=== PATIENT | male | born 1975 | race African-American/Black ===

== ENCOUNTER 2017-04-17 12:06 | Emergency (ER) | payer MEDICAID, OTHER ==
[2017-04-17] MEDS ORDERED: ACETAMINOPHEN 325 MG TABLET PO ONE (13:14)
--- NOTE | 2017-04-17 14:23 | ER Document Report ---
HPI - HPI Patient complains to provider of: hand pain Pain Level: 4 Context: Patient is a 41-year-old male who presents emergency department complaining of left hand pain and swelling. Patient states that he was mowing his lawn when he went to pull the starter cord and it hit his left hand. Patient states that it was swollen all last evening and still painful this morning. Otherwise he states he can make a fist full range of motion no decreased sensation. Denies any other past medical issues - DERM Skin Color: Normal Past Medical History - Social History Smoking Status: Current Every Day Smoker Chew tobacco use (# tins/day): No Frequency of alcohol use: None Drug Abuse: None Family History: Other Patient has suicidal ideation: No Patient has homicidal ideation: No Renal/ Medical History: Denies: Hx Peritoneal Dialysis Surgical Hx: Negative - Immunizations Hx Diphtheria, Pertussis, Tetanus Vaccination: No Vertical Provider Document - CONSTITUTIONAL Agree With Documented VS: Yes Exam Limitations: No Limitations General Appearance: WD/WN, No Apparent Distress - INFECTION CONTROL TRAVEL OUTSIDE OF THE [place]. IN LAST 30 DAYS: No - RESPIRATORY O2 Sat by Pulse Oximetry: 100 - CARDIOVASCULAR Pulses: Normal: Radial Notes: Capillary refill less than 2 seconds in all upper extremity digits - MUSCULOSKELETAL/EXTREMETIES Musculoskeletal/Extremeties: MAEW, FROM, Tender - Positive tenderness to palpation of the thenar muscle mass of the left hand with minimal swelling, Eccymosis. negative: No Edema - NEURO Level of Consciousness: Awake, Alert, Appropriate Motor/Sensory: No Motor Deficit, No Sensory Deficit - DERM Integumentary: Warm, Dry. negative: Laceration Course - Re-evaluation Re-evalutation: 04/17/17 15:29 Patient is a 41-year-old male who is hemodynamic stable, no acute distress and afebrile. Left hand x-ray negative for any dislocation or fracture. Discussed with patient to use ice and [id number] Motrin and can follow-up with primary care as needed - Vital Signs Vital signs: Temp Pulse Resp BP Pulse Ox 98.0 F 71 14 128/91 H 100 04/17/17 12:12 04/17/17 12:12 04/17/17 12:12 04/17/17 12:12 04/17/17 12:12 - Diagnostic Test Radiology reviewed: Image reviewed - No evidence of fracture or dislocation, Reports reviewed Discharge - Discharge Clinical Impression: Hand injury Condition: Good Disposition: HOME, SELF-CARE Instructions: Ice Packs ([facility]), Use of Cbhp-[id number]-Wmkelkb Ibuprofen ([facility]) Additional Instructions: Please follow-up with your primary care physician in the next 7 days if your pain is not improving. Forms: Return to Work
[2017-04-17 14:46] VITALS: BP 107/67
== END 2017-04-17 14:46 | disposition home or self-care (01) ==
LOC: ER 12:06
DX: S69.92XA Unspecified injury of left wrist, hand and finger(s), initial encounter (principal); W22.8XXA Striking against or struck by other objects, initial encounter; Y93.H2 Activity, gardening and landscaping; Y92.007 Garden or yard of unspecified non-institutional (private) residence as the place of occurrence of the external cause; F17.200 Nicotine dependence, unspecified, uncomplicated
CPT/HCPCS: 99283

== ENCOUNTER 2017-12-14 05:14 | Emergency (ER) | payer OTHER, MEDICAID ==
[2017-12-14 05:20] VITALS: BP 134/88
[2017-12-14] MEDS ORDERED: LIDOCAINE 2% VISCOUS SOLN 20 ML UDCUP PO ONE (06:50)
[2017-12-14] MEDS ORDERED: IBUPROFEN 600 MG TABLET PO ONE (06:53)
[2017-12-14] MEDS ORDERED: PENICILLIN V POTASSIUM 500 MG TABLET PO ONE (06:53)
[2017-12-14] MEDS ORDERED: ACETAMINOPHEN 325 MG TABLET PO ONE (06:53)
--- NOTE | 2017-12-14 06:55 | ER Document Report ---
ED Oral Problem - General Chief Complaint: Toothache Stated Complaint: TOOTHACHE Time Seen by Provider: 12/14/17 06:50 Notes: The patient is a 42-year-old male who presents with 1 day of right upper molar pain after he bit into an hard object and heard a crack. He has not seen a dentist for this. Denies fevers, tongue swelling, nausea, vomiting or neck stiffness. TRAVEL OUTSIDE OF THE U[place] IN LAST 30 DAYS: No - Related Data Allergies/Adverse Reactions: No Known Allergies Allergy (Verified 12/14/17 05:16) Past Medical History - General Information source: Patient - Social History Smoking Status: Unknown if Ever Smoked Family History: Reviewed & Not Pertinent, Other Renal/ Medical History: Denies: Hx Peritoneal Dialysis - Immunizations Hx Diphtheria, Pertussis, Tetanus Vaccination: No Review of Systems - Review of Systems EENT: Mouth pain, Dental problem. denies: Difficulty swallowing, Throat swelling, Mouth swelling Respiratory: denies: Cough, Wheezing Skin: denies: Lesions, Rash Neurological/Psychological: denies: Weakness, Numbness Physical Exam - Vital signs Vitals: Temp Pulse Resp BP Pulse Ox 98.2 F 81 20 134/88 H 100 12/14/17 05:19 12/14/17 05:19 12/14/17 05:19 12/14/17 05:19 12/14/17 05:19 - Notes Notes: PHYSICAL EXAMINATION: GENERAL: Well-appearing, well-nourished and in no acute distress. HEAD: Atraumatic, normocephalic. EYES: Pupils equal round and reactive to light, extraocular movements intact, sclera anicteric, conjunctiva are normal. ENT: poor dentition, single cracked tooth in right upper mouth with mild gingiva swelling, nares patent, oropharynx clear without exudates. Moist mucous membranes. NECK: Normal range of motion, supple without lymphadenopathy NEUROLOGICAL: Cranial nerves grossly intact. Normal speech, normal gait. Normal sensory and motor exams. SKIN: Warm, Dry, normal turgor, no rashes or lesions noted. Course - Re-evaluation Re-evalutation: Patient with poor dentition and a new tooth fracture. Will start on penicillin and have him follow-up with the dentist today. - Vital Signs Vital signs: Temp Pulse Resp BP Pulse Ox 98.2 F 81 20 134/88 H 100 12/14/17 05:19 12/14/17 05:19 12/14/17 05:19 12/14/17 05:19 12/14/17 05:19 Discharge - Discharge Clinical Impression: Toothache Condition: Stable Disposition: HOME, SELF-CARE Additional Instructions: TOOTHACHE: Your pain is due to dental decay. The tooth must be repaired in order for you to feel better. You will, therefore, be referred to a dentist. We do not have dentists on the staff at [facility]. Severe swelling or drainage around a tooth usually means a dental abscess. This also requires evaluation and treatment by the dentist, but antibiotics may be prescribed while awaiting dental treatment. You should be rechecked immediately if you develop major swelling of the face, increasing pain, a lump in the jaw or gums, headache, difficulty swallowing, or fever. PENICILLIN V K: You have been given a prescription for Penicillin VK. Your physician has determined that this is the best antibiotic for your condition. Pen VK can be taken with meals, however more of the antibiotic gets into the bloodstream if it's taken on an empty stomach. Penicillin usually has no side effects. However, allergy to penicillins is common. If you have had an allergic reaction to any drug of the penicillin family, you should never take any other penicillin. Notify your doctor at once if you develop hives, itching, swelling, faintness, or shortness of breath. FOLLOW-UP CARE: You have been referred for follow-up care to the dentists listed below. Call the dentists office for an appointment as you were instructed or within the next two days. If you experience worsening or a significant change in your symptoms, notify the physician immediately or return to the Emergency Department at any time for re-evaluation. [facility] [address] [place], [place] Thursday mornings, by appointment [facility] [address] [place] [address] [facility] [address] [facility] [address] [facility] [address] [email or web address] [address] [place] [address] Thursday- 8:00am to 5:00 pm Will see patients from other [facility]. Charges based on income and family size and accepts Medicare, Medicaid, and Insurances Will pull molars [facility] [address] Hours of Operation 8:00 am - 4:30 pm weekdays The following dental offices accept Medicaid: [facility] Dr. Ledesma Dr. Morales Dr. Sheth Dr. Tucker Luis E Velazquez, Rene, and Tk oral surgery Dr. Ramirez ([place]) Dr. Martinez ([place]) [facility] Drs. Marina and Jeanmarie ([place]) Dr. Tomlinson ([place]) [facility] Dr. Porter ([place]) Drs. Gamez and ([place]) Medicaid Care Line Prescriptions: Penicillin V Potassium [Penicillin Vk 500 mg Tablet] 500 mg PO BID #20 tablet Forms: Elevated Blood Pressure, Return to Work Referrals: [facility] [Provider Group] - Follow up as needed
== END 2017-12-14 07:15 | disposition home or self-care (01) ==
LOC: ER 05:14
DX: S02.5XXA Fracture of tooth (traumatic), initial encounter for closed fracture (principal); W22.8XXA Striking against or struck by other objects, initial encounter; K08.89 Other specified disorders of teeth and supporting structures
CPT/HCPCS: 99282; J3490

== ENCOUNTER 2018-01-22 05:04 | Emergency (ER) | payer OTHER, MEDICAID ==
[2018-01-22 05:09] VITALS: BP 127/80
[2018-01-22] MEDS ORDERED: KETOROLAC TROMETHAMINE 60 MG/2 ML SDV IM ONE (06:20)
--- NOTE | 2018-01-22 06:20 | ER Document Report ---
ED Neck/Back Problem - General Chief Complaint: Back Pain Stated Complaint: BACK PAIN Time Seen by Provider: 01/22/18 06:04 Notes: 42-year-old male to emergency department chief complaint of low back pain. History of low back pain. Followed by the [facility] for persistent low back pain. Pain radiates down right leg. Movement makes it worse. Denies any fever, chills, sweats, loss of bowel or bladder function. Denies any other symptoms at this time. States that he did not think he can make it to work this morning so thought he better come here for an evaluation TRAVEL OUTSIDE OF THE U.S. IN LAST 30 DAYS: No - HPI Patient complains to provider of: Pain Onset: Other - Chronic Onset: Gradual Timing: Constant Quality of pain: Achy Severity: Moderate Pain Level: 3 - Related Data Allergies/Adverse Reactions: No Known Allergies Allergy (Verified 01/22/18 05:55) Past Medical History - General Information source: Patient - Social History Smoking Status: Current Every Day Smoker Chew tobacco use (# tins/day): No Frequency of alcohol use: Occasional Drug Abuse: None Lives with: Family Family History: Reviewed & Not Pertinent, Other Patient has suicidal ideation: No Patient has homicidal ideation: No Renal/ Medical History: Denies: Hx Peritoneal Dialysis Musculoskeltal Medical History: Reports Other - Chronic low back pain - Immunizations Hx Diphtheria, Pertussis, Tetanus Vaccination: No Review of Systems - Review of Systems Constitutional: denies: Fever, Malaise, Weakness EENT: denies: Eye pain, Blurred vision, Mouth pain Cardiovascular: denies: Chest pain, Palpitations, Heart racing Respiratory: denies: Cough, Hurts to breathe, Short of breath, Wheezing Gastrointestinal: denies: Abdominal pain, Diarrhea, Nausea Genitourinary: denies: Burning, Dysuria, Discharge Male Genitourinary: denies: Testicular pain, Penile discharge Musculoskeletal: Back pain, Muscle stiffness. denies: Joint pain, Muscle pain Neurological/Psychological: denies: Sensory change, Weakness, Paralysis Physical Exam - Vital signs Vitals: Temp Pulse Resp BP Pulse Ox 98.5 F 77 18 127/80 H 100 01/22/18 05:08 01/22/18 05:08 01/22/18 05:08 01/22/18 05:08 01/22/18 05:08 Interpretation: Normal - General General appearance: Appears well, Alert - Respiratory Respiratory status: No respiratory distress Chest status: Nontender Breath sounds: Normal Chest palpation: Normal - Cardiovascular Rhythm: Regular Heart sounds: Normal auscultation Murmur: No - Abdominal Inspection: Normal Distension: No distension Bowel sounds: Normal Tenderness: Nontender Organomegaly: No organomegaly - Back Back: Normal, Other - Mild tenderness to palpation of the paraspinal muscles of the right paraspinal lumbar muscles. No midline tenderness. Normal reflexes distally. Positive straight leg raising on the right. - Extremities General upper extremity: Normal inspection, Nontender, Normal color, Normal ROM , Normal temperature General lower extremity: Normal inspection, Nontender, Normal color, Normal ROM , Normal temperature, Normal weight bearing. No: Kendra's sign - Neurological Neuro grossly intact: Yes Cognition: Normal Orientation: AAOx4 Morning View Coma Scale Eye Opening: Spontaneous Jayne Coma Scale Verbal: Oriented Jayne Coma Scale Motor: Obeys Commands Morning View Coma Scale Total: 15 Speech: Normal Motor strength normal: LUE, RUE, LLE, RLE Sensory: Normal Course - Re-evaluation Re-evalutation: 01/22/18 06:21 42-year-old male with history of low back pain[facility] is been [facility]. Same location as his normal pain. Pain is radiating down the right leg. Denies any fever, chills, sweats, loss of bowel or bladder function , no saddle anesthesia. Basically no red flag warning signs were reported. Physical exam is fairly unremarkable. Gave patient shot of Toradol. Will advise him to [facility] if [facility] get worse. Patient verbalized understanding of instructions and patient will be discharged at this time in stable condition. Work note given. - Vital Signs Vital signs: Temp Pulse Resp BP Pulse Ox 98.5 F 77 18 127/80 H 100 01/22/18 05:08 01/22/18 05:08 01/22/18 05:08 01/22/18 05:08 01/22/18 05:08 Discharge - Discharge Clinical Impression: Low back pain Qualifiers: Chronicity: acute Back pain laterality: right Sciatica presence: with sciatica Sciatica laterality: sciatica of right side Qualified Code(s): M54.41 - Lumbago with sciatica, right side Condition: Good Disposition: HOME, SELF-CARE Instructions: Pain Medication Injection ([facility]) Additional Instructions: Low Back Pain Three out of every four people will have an episode of disabling back pain during their lifetime. Most commonly the pain is due to straining of the muscles and ligaments in the low back. Usual treatment includes: (1) Rest on a firm surface. Avoid lying on your stomach. (2) Ice pack the painful area. After a few days, gentle heat may be used intermittently to relax the area, or ice packs can be continued. (3) Medication may be needed -- muscle relaxers and antiinflammatory medicines are commonly used. (4) As the back improves, exercises are prescribed to strengthen the back and abdominal muscles. Your doctor will advise you on the proper care for your back at each stage in your recovery. You may be better in a few days -- or healing may take several weeks. If new symptoms of a "herniated disc" (radiation of pain, numbness, or tingling down the back of the leg or weakness in the leg) occur, you should be re-examined. Further testing may be necessary. Return immediately if you develop any change in bowel or bladder function, fever with back pain, numbness in the crotch area, loss of function of lower extremities or for any other concerns Prescriptions: Diazepam [Valium 5 mg Tablet] 5 mg PO BID PRN 7 Days #15 tablet PRN Reason: Muscle Spasms Meloxicam [Mobic] 15 mg PO DAILY 20 Days #20 tablet Omeprazole Magnesium [Prilosec Otc] 20 mg PO DAILY 20 Days #20 tablet.dr Forms: Return to Work
== END 2018-01-22 06:35 | disposition home or self-care (01) ==
LOC: ER 05:04
DX: M54.41 Lumbago with sciatica, right side (principal); M54.9 Dorsalgia, unspecified; M79.604 Pain in right leg; F17.200 Nicotine dependence, unspecified, uncomplicated
CPT/HCPCS: 99283; 96372; J1885

== ENCOUNTER 2018-02-11 07:27 | Emergency (ER) | payer OTHER, MEDICAID ==
[2018-02-11 07:32] VITALS: BP 121/80
--- NOTE | 2018-02-11 08:12 | ER Document Report ---
ED General - General Mode of Arrival: Ambulatory Information source: Patient TRAVEL OUTSIDE OF THE [place]. IN LAST 30 DAYS: No - General Chief Complaint: Back Pain Stated Complaint: BACK PAIN Time Seen by Provider: 02/11/18 07:53 Notes: Patient is a 42 year old male with a history of chronic back pain presents to the emergency department complaining of back pain onset this morning. Patient states he was doing yard work yesterday when he had a mechanical slip and fall from a standing position and landed on his bottom. Patient states he believes this is why he is having back pain this morning. Patient states he came into the emergency for a work note so he could get rest at home. Patient denies numbness, weakness, or bladder dysfunction. Patient was seen in the emergency department on 01/22/2018 with back pain, but states today his pain is not as severe. (NANETTE BERMUDEZ) - Related Data Allergies/Adverse Reactions: No Known Allergies Allergy (Verified 01/22/18 05:55) Past Medical History - General Information source: Patient - Social History Smoking Status: Current Every Day Smoker Family History: Reviewed & Not Pertinent, Other - Immunizations Hx Diphtheria, Pertussis, Tetanus Vaccination: No Review of Systems - Review of Systems Constitutional: No symptoms reported EENT: No symptoms reported Cardiovascular: No symptoms reported Respiratory: No symptoms reported Gastrointestinal: No symptoms reported Genitourinary: No symptoms reported Male Genitourinary: No symptoms reported Musculoskeletal: See HPI, Back pain Skin: No symptoms reported Hematologic/Lymphatic: No symptoms reported Neurological/Psychological: No symptoms reported -: Yes All other systems reviewed and negative Physical Exam - Vital signs Vitals: Temp Pulse Resp BP Pulse Ox 98.5 F 78 15 121/80 100 02/11/18 07:31 02/11/18 07:31 02/11/18 07:31 02/11/18 07:31 02/11/18 07:31 - Notes Notes: GENERAL: Alert, interacts well. No acute distress. HEAD: Normocephalic, atraumatic. EYES: Pupils equal, round, and reactive to light. Extraocular movements intact. ENT: Oral mucosa moist, tongue midline. NECK: Full range of motion. Supple. Trachea midline. LUNGS: Clear to auscultation bilaterally, no wheezes, rales, or rhonchi. No respiratory distress. HEART: Regular rate and rhythm. No murmurs, gallops, or rubs. ABDOMEN: Soft, non-tender. Non-distended. Bowel sounds present in all 4 quadrants. EXTREMITIES: Moves all 4 extremities spontaneously. Right forearm, dorsal aspect contains a tattoo, small amount of crusting and warmth, no erythema or exudate. Sensations intact, no saddle anesthesia. Great toe raise 5/5 bilaterally. Able to walk on heels and toes. No edema, radial and dorsalis pedis pulses 2/4 bilaterally. No cyanosis. NEUROLOGICAL: Alert and oriented x3. Normal speech. mildly decreased reflexes of bilateral patellar tendons. PSYCH: Normal affect, normal mood. SKIN: Warm, dry, normal turgor. No rashes or lesions noted. BACK: Tender to palpation diffusely to the lumbar region, across spinal and paraspinal regions. (NANETTE BERMUDEZ) Course - Re-evaluation Re-evalutation: 02/11/18 08:14 Patient emphasizes that his back pain is not nearly as bad as when he was seen on the , states he does not want anything for pain including a shot of Toradol like he got last time, states that he feels that all he needs to do is rest today however his job told him he had to have a work note before he can be excused from work. Patient has no red flag symptoms, no signs of cauda equina, normal strength, normal gait, no saddle anesthesia, no bowel or bladder dysfunction. Patient will be discharged to home. (SANTY CERNA) - Vital Signs Vital signs: Temp Pulse Resp BP Pulse Ox 98.5 F 78 15 121/80 100 02/11/18 07:31 02/11/18 07:31 02/11/18 07:31 02/11/18 07:31 02/11/18 07:31 Discharge - Discharge Clinical Impression: Acute exacerbation of chronic low back pain Condition: Stable Disposition: HOME, SELF-CARE Instructions: Low Back Pain ([facility]) Forms: Return to Work Referrals: JONATHAN HERCULES MD [COMMUNITY BASED STAFF] - Follow up as needed Scribe Attestation: 02/11/18 14:35 I personally performed the services described in the documentation, reviewed and edited the documentation which was dictated to the scribe in my presence, and it accurately records my words and actions. (SANTY CERNA) Scribe Documentation - Scribe Written by Mere:: Mere Reid, 02/11/2018 08:32 acting as scribe for :: Juan
== END 2018-02-11 08:35 | disposition home or self-care (01) ==
LOC: ER 07:27
DX: G89.29 Other chronic pain (principal); M54.5 Low back pain; F17.200 Nicotine dependence, unspecified, uncomplicated
CPT/HCPCS: 99283

== ENCOUNTER 2018-02-17 07:03 | Emergency (ER) | payer OTHER, MEDICAID ==
[2018-02-17 07:15] VITALS: BP 117/67
--- NOTE | 2018-02-17 07:34 | ER Document Report ---
ED GI/ - General Chief Complaint: Vomiting Stated Complaint: VOMITING Time Seen by Provider: 02/17/18 07:20 Notes: The patient is a 42-year-old male who presents with 12 hours of nausea, vomiting and watery diarrhea. His daughter had similar symptoms a few days ago and they quickly resolved after 2 days. Patient tried to go to work and was told to go the ER. He denies abdominal pain, current nausea, blood in stool, recent antibiotic use, fevers, recent travel or urinary symptoms. TRAVEL OUTSIDE OF THE [place] IN LAST 30 DAYS: No - Related Data Allergies/Adverse Reactions: No Known Allergies Allergy (Verified 02/17/18 07:20) Past Medical History - General Information source: Patient - Social History Smoking Status: Unknown if Ever Smoked Family History: Reviewed & Not Pertinent, Other Renal/ Medical History: Denies: Hx Peritoneal Dialysis - Immunizations Hx Diphtheria, Pertussis, Tetanus Vaccination: No Review of Systems - Review of Systems Notes: REVIEW OF SYSTEMS: CONSTITUTIONAL: -fevers, -chills EENT: -eye pain, -difficulty swallowing, -nasal congestion CARDIOVASCULAR: -chest pain, -syncope. RESPIRATORY: -cough, -SOB GASTROINTESTINAL: -abdominal pain, +nausea, +vomiting, +diarrhea GENITOURINARY: -dysuria, -hematuria MUSCULOSKELETAL: -back pain, -neck pain SKIN: -rash or skin lesions. HEMATOLOGIC: -easy bruising or bleeding. LYMPHATIC: -swollen, enlarged glands. NEUROLOGICAL: -altered mental status or loss of consciousness, -headache, - neurologic symptoms PSYCHIATRIC: -anxiety, -depression. ALL OTHER SYSTEMS REVIEWED AND NEGATIVE. Physical Exam - Vital signs Vitals: Temp Pulse Resp BP Pulse Ox 98.3 F 91 16 117/67 99 02/17/18 07:11 02/17/18 07:11 02/17/18 07:11 02/17/18 07:11 02/17/18 07:11 - Notes Notes: PHYSICAL EXAMINATION: GENERAL: Well-appearing, well-nourished and in no acute distress. HEAD: Atraumatic, normocephalic. EYES: Pupils equal round and reactive to light, extraocular movements intact, sclera anicteric, conjunctiva are normal. ENT: nares patent, oropharynx clear without exudates. Moist mucous membranes. NECK: Normal range of motion, supple without lymphadenopathy LUNGS: Breath sounds clear to auscultation bilaterally and equal. No wheezes rales or rhonchi. HEART: Regular rate and rhythm without murmurs ABDOMEN: Soft, nontender, normoactive bowel sounds. No guarding, no rebound. No masses appreciated. EXTREMITIES: Normal range of motion, no pitting or edema. No cyanosis. NEUROLOGICAL: Cranial nerves grossly intact. Normal speech, normal gait. Normal sensory and motor exams. PSYCH: Normal mood, normal affect. SKIN: Warm, Dry, normal turgor, no rashes or lesions noted. Course - Re-evaluation Re-evalutation: Patient appears very well and is in no acute distress. His abdomen is completely soft and nontender. Vital signs are normal symptoms are only ongoing for 12 hours. He does not require blood work at this time. His daughter had the same symptoms a few days ago. No dangerous risk factors for C. difficile and no recent travel. Instructed him to stay hydrated by using Zofran and given strict return precautions. - Vital Signs Vital signs: Temp Pulse Resp BP Pulse Ox 98.3 F 91 16 117/67 99 02/17/18 07:11 02/17/18 07:11 02/17/18 07:11 02/17/18 07:11 02/17/18 07:11 Discharge - Discharge Clinical Impression: Nausea vomiting and diarrhea Condition: Stable Disposition: HOME, SELF-CARE Additional Instructions: VOMITING: Vomiting (or nausea without vomiting) can be caused by many other different problems. It can mean that something's wrong with the stomach, such as ulcers or inflammation or the intestinal tract, such as appendicitis. But it can also be a symptom of a problem that has nothing to do with the stomach or intestines. Vomiting is common with severe headaches, earaches, tonsillitis, and kidney infections, etc. We see it with pneumonia or heart attacks. Drugs can cause nausea and vomiting. Many abdominal problems cause vomiting; for example, gallstones, kidney stones, pancreatitis, and intestinal obstruction ( blocked bowels). In most cases, curing the vomiting depends on fixing the problem that caused it. For temporary relief, we may use an anti-nausea medicine. For home use, we can prescribe suppositories, chewable pills, pills that dissolve in the mouth, or liquid anti-nausea drugs. If the vomiting seems to be caused by a problem in the stomach, acid-suppressing drugs may be prescribed as well. It's important to avoid dehydration. Sip small amounts of clear liquids ( soft drinks, tea, broth, etc) . Try to take fluids frequently even if you are vomiting to prevent dehydration. Take increasing amounts of fluid and when liquids are being consumed successfully, advance to small amounts of bland food (toast, soups, mashed potatoes, etc.) until you are able to resume a regular diet. Avoid aspirin, tobacco, and alcohol. If the vomiting worsens, if the problem that's making you vomit worsens, or if there's evidence of bleeding in the stomach (such as black, tarry stool, or bloody or black vomit), you should return immediately. Also, return if abdominal pain worsens or becomes localized to one area or you develop high fever. Call your doctor if you aren't improved in 24 hours. DIARRHEA, NON-SPECIFIC: Diarrhea means frequent, watery stools. There are many causes. Any problem that keeps the intestinal tract from absorbing water from the stool can lead to diarrhea. A sudden new diarrhea problem is usually caused by a virus, food sensitivity, toxic bacteria, or drugs. In this case, we expect the problem to go away soon. Testing is done only if you seem seriously ill from the diarrhea. If you have chronic diarrhea, or diarrhea that keeps coming back, we need to find out why. Chronic diarrhea can be due to inflammation of the bowels such as Crohn's disease or ulcerative colitis, food sensitivity such as intolerance to lactose or wheat protein, irritable bowel syndrome, and other problems. If your diarrhea is a significant problem but it's not clear why you have it, we' ll refer you to a specialist for further testing. During an episode of diarrhea, drink small amounts (two to six ounces) of clear liquids (soft drinks, sport drinks, herb teas, broth, etc). Take fluids frequently to prevent dehydration. It's usually not a problem to take mild anti- diarrhea medication such as Kaopectate or Pepto-Bismol. As the diarrhea eases, advance to small amounts of bland food (mashed potato, toast) for 24 hours. Call the physician if blood appears in your vomit or stool, if vomiting lasts longer than 24 hours, if the abdominal pain worsens or becomes localized to one area, if you develop high fever, or if you become lightheaded and weak. VIRAL SYNDROME: The physician has diagnosed a viral infection. Viruses not only cause "colds," but can cause many different symptoms including generalized aching, fever, headache, cough, diarrhea, nausea, vomiting, and fatigue. The treatment, for the most part, is simply relief of symptoms. This means that antibiotics are usually not given. Rest, fluids, pain medications and, occasionally, medication for the specific symptoms that are most bothersome will be prescribed. Use good handwashing to avoid passing the virus to others. Shared toys should be cleaned with disinfectant. Clean the toilets, sinks, and counter surfaces in bathrooms. Launder clothing in hot water. Contact the physician if you develop any new or unusual symptoms such as severe headache, stiff neck, high fever, chest pain, productive cough, or shortness of breath. You should be rechecked if you don't see marked improvement within seven to 10 days. ANTINAUSEA MEDICATION: You have been given a medication to suppress nausea and vomiting. This type of medication can be given as a shot, pill, or suppository. It will usually last for many hours. Pills and shots usually last six to eight hours. For the typical illness, only one or two doses of the medication may be necessary. Mild lightheadedness may occur. This type of medicine can cause drowsiness. Do not drive or operate dangerous machinery while under its influence. Do not mix with alcohol. See your doctor at once if you have muscle spasms or tightness, or uncontrollable motions (particularly of the neck, mouth, or jaw). Persistent vomiting or severe lightheadedness should also be evaluated by the physician. FOLLOW-UP CARE: If you have been referred to a physician for follow-up care, call the physician s office for an appointment as you were instructed or within the next two days. If you experience worsening or a significant change in your symptoms, notify the physician immediately or return to the Emergency Department at any time for re-evaluation. Prescriptions: Ondansetron [Zofran Odt 4 mg Tablet] 1 - 2 tab PO Q4H PRN #15 tab.rapdis PRN Reason: For Nausea/Vomiting Forms: Return to Work
== END 2018-02-17 07:40 | disposition home or self-care (01) ==
LOC: ER 07:03
DX: R11.2 Nausea with vomiting, unspecified (principal); R19.7 Diarrhea, unspecified
CPT/HCPCS: 99283

== ENCOUNTER → 2018-04-19 | Outpatient (CLI) | payer MEDICAID ==
--- NOTE | 2018-04-19 16:05 | RADIOLOGY REPORT (SQ) ---
EXAM DESCRIPTION: LUMBAR SPINE COMPLETE COMPLETED DATE/TIME: 04/19/2018 1:13 pm REASON FOR STUDY: LUMBAGO WITH SCIATICA, UNSPECIFIED SIDE M54.40 LUMBAGO WITH SCIATICA, UNSPECIFIED SIDE COMPARISON: None. NUMBER OF VIEWS: Five views including obliques. TECHNIQUE: AP, lateral, oblique, and sacral radiographic images acquired of the lumbar spine. LIMITATIONS: None. FINDINGS: MINERALIZATION: Normal. SEGMENTATION: Normal. No transitional anatomy. ALIGNMENT: Normal. VERTEBRAE: Maintained height. No fracture or worrisome bone lesion. DISCS: Preserved height. No significant osteophytes or end plate irregularity. POSTERIOR ELEMENTS: Pedicles and facets are intact. No pars defect or posterior arch defects. Lower lumbar facet joint space narrowing and bony spurring left greater than right at L4-5 HARDWARE: None in the spine. PARASPINAL SOFT TISSUES: Normal. PELVIS: Intact as visualized. No fractures or worrisome bone lesions. SI joints intact. OTHER: No other significant finding. IMPRESSION: Lumbar facet arthropathy at L4-5 TECHNICAL DOCUMENTATION: JOB ID: [id number]- All Rights Reserved Reading location - IP/workstation name: [email or web address]
== END ==
LOC: OD 12:52
PROVIDERS: ATTEND Internal Medicine
DX: M54.40 Lumbago with sciatica, unspecified side (principal)
CPT/HCPCS: 72110

== ENCOUNTER 2019-02-10 21:36 | Emergency (ER) | payer MEDICAID, OTHER ==
[2019-02-10] MEDS ORDERED: LIDOCAINE 5% (700 MG) TRANSDERMAL ADH..PATCH TP ONE (23:22)
[2019-02-10] MEDS ORDERED: KETOROLAC TROMETHAMINE 60 MG/2 ML SDV IM ONE (23:22)
--- NOTE | 2019-02-10 23:31 | ER Document Report ---
HPI - HPI Time Seen by Provider: 02/10/19 23:14 Pain Level: 5 Notes: Patient is a 43-year-old male with no significant past medical history who presents to the ED complaining of bilateral lower back pain x2 days. Patient states that he was twisting and moving things around his house just prior to the start of the pain. Patient states that bending twisting of the trunk make his pain worse. Pain will occ radiate into his rt buttock. He is eating and drinking without any difficulties. He is urinating normally and having normal bowel movements. He has not had any injections or procedures to his lower back. Denies any IV drug abuse, DM, h/o spinal abscess. No other concerns or complaints. Denies any headache, fever, neck pain, URI, sore throat, chest pain, palpitations, syncope, cough, shortness of breath, wheeze, dyspnea, abdominal pain, nausea/vomiting/diarrhea, urinary retention, dysuria, hematuria, loss of control of bowel or bladder, numbness/tingling, saddle anesthesia, muscle paralysis/weakness, or rash. - ROS Systems Reviewed and Negative: Yes All other systems reviewed and negative Past Medical History - Social History Smoking Status: Current Every Day Smoker Chew tobacco use (# tins/day): No Frequency of alcohol use: Occasional Drug Abuse: None Family History: Reviewed & Not Pertinent, Other Patient has suicidal ideation: No Patient has homicidal ideation: No Renal/ Medical History: Denies: Hx Peritoneal Dialysis - Immunizations Hx Diphtheria, Pertussis, Tetanus Vaccination: No Vertical Provider Document - CONSTITUTIONAL Agree With Documented VS: Yes Notes: PHYSICAL EXAMINATION: GENERAL: Well-appearing, well-nourished and in no acute distress. LUNGS: Breath sounds clear to auscultation bilaterally and equal. No wheezes rales or rhonchi. HEART: Regular rate and rhythm without murmurs, rubs, gallops. ABDOMEN: Soft, nontender, nondistended abdomen. No guarding, no rebound. No masses appreciated. Normal bowel sounds present. No CVA tenderness bilaterally. No pulsatile mass Musculoskeletal: LE's b/l: FROM to passive/active. Strength 5+/5. No deficits noted. No bony tenderness of extremities. Back: FROM to passive/active. Strength 5+/5. No vertebral point tenderness, stepoffs, or deformities. No other bony tenderness, erythema, swelling, or ecchymosis. SLR negative b/l. + reproducible mild tenderness to the L- paraspinal mm b/l. Mild spasming. + mild rt SI jt tenderness. No foot drop Extremities: No cyanosis, clubbing, or edema b/l. Peripheral pulses 2+. Capillary refill less than 2 seconds. NEUROLOGICAL: Normal speech, normal gait. Normal sensory, motor exams. Reflex es 2+ b/l. PSYCH: Normal mood, normal affect. SKIN: Warm, Dry, normal turgor, no rashes or lesions noted. - INFECTION CONTROL TRAVEL OUTSIDE OF THE [place] IN LAST 30 DAYS: No Course - Re-evaluation Re-evalutation: 02/10/19 23:29 Patient is an afebrile, well-hydrated, 43-year-old male who presents to the ED with acute on chronic low back pain. Vitals are acceptable. PE is otherwise unremarkable for any focal neurological deficits. Patient was given Toradol and Lidoderm patch. He has no significant tachycardia, tachypnea, or hypoxia. He is nontoxic-appearing and is tolerating p.o. without difficulties. There are no signs of infection. No other red flag symptoms noted. No other labs or imaging warranted at this time based on H&P. Low suspicion for any meningitis, fracture, expanding/ruptured AAA, cauda equina syndrome, epidural mass lesion/abscess, herniated disc causing severe spinal stenosis, or other systemic infection at this time. Patient is aware that his condition can change from initial presentation and that he needs monitor symptoms closely for any acute changes. I will send him home with a prescription for flexeril and naproxen. Conservative measures otherwise for symptoms. Recheck with your PCM in 3-5 days. Consider consult with orthopedic/physical therapy. Return to the ED with any worsening/concerning symptoms otherwise as reviewed discharge. Patient is in agreement. Discharge - Discharge Clinical Impression: Acute exacerbation of chronic low back pain Condition: Stable Disposition: HOME, SELF-CARE Instructions: Low Back Pain ([facility]), Stretching Exercises for the Back ([facility]), Muscle Relaxers ([facility]) Additional Instructions: Rest, Ice Tylenol/ibuprofen as needed Light stretches daily Strength exercises as able Moist heat and massage may help F/u with your PCP in 3-5 days for a recheck Consider consult(s) with Orthopedics/physical therapy for ongoing/worsening symptoms Return to the ED with any worsening symptoms and/or development of fever, headache, chest pain, palpitations, syncope, shortness of breath, trouble breathing, abdominal pain, n/v/d, blood in stool/urine, loss of control of bowel/bladder, urinary retention, muscle weakness/paralysis, saddle anesthesia, numbness/tingling, or other worsening symptoms that are concerning to you. Prescriptions: Cyclobenzaprine HCl [Flexeril 10 mg Tablet] 10 mg PO TIDP PRN #15 tab PRN Reason: Naproxen 500 mg PO BID #10 tablet Forms: Smoking Cessation Education, Elevated Blood Pressure Referrals: [facility] [Primary [facility] Provider] - Follow up as needed [facility] [Provider Group] - Follow up as needed
[2019-02-11 00:06] VITALS: BP 118/78
== END 2019-02-11 00:06 | disposition home or self-care (01) ==
LOC: ER 21:36
DX: G89.29 Other chronic pain (principal); M54.5 Low back pain; F17.200 Nicotine dependence, unspecified, uncomplicated
CPT/HCPCS: 99283; 96372; J1885